=== PATIENT | male | born 1940 | race Caucasian/White ===

== ENCOUNTER 2022-09-09 13:00 | Emergency (ER) | payer MEDICARE, BC ==
[2022-09-09 14:26] LABS: BASOPHILS ABSOLUTE AUTO 0.03 K/uL (0.00-0.10); BASOPHILS PERCENT AUTO 0.4 % (0.1-1.3); EOSINOPHILS ABSOLUTE AUTO 0.03 K/uL (0.00-0.40); EOSINOPHILS PERCENT AUTO 0.4 % (0.0-5.4); HEMATOCRIT 39.3 % (38.4-49.7); HEMOGLOBIN 13.2 g/dL (12.9-16.9); IMMATURE GRAN ABSOLUTE AUTO 0.13 K/uL (0.00-0.23); IMMATURE GRAN PERCENT AUTO 1.8 % (0.0-0.7); LYMPHOCYTES ABSOLUTE AUTO 0.63 K/uL (0.8-3.3); LYMPHOCYTES PERCENT AUTO 8.9 % (11.4-47.7); MEAN CORPUSCULAR HEMOGLOBIN 31.5 pg (31.6-35.5); MEAN CORPUSCULAR HGB CONC 33.6 g/dL (31.6-35.5); MEAN CORPUSCULAR VOLUME 93.8 fL (81.4-99.0); MONOCYTES ABSOLUTE AUTO 0.71 K/uL (0.20-0.90); NEUTROPHILS ABSOLUTE AUTO 5.58 K/uL (1.0-7.6); NEUTROPHILS PERCENT AUTO 78.5 % (40.0-78.1); PLATELET COUNT,PLT 156 K/uL (130-375); RED BLOOD CELL COUNT 4.19 M/uL (4.14-5.76); WHITE BLOOD CELL COUNT,WBC 7.1 K/uL (3.2-11.0)
[2022-09-09 14:49] LABS: A/G RATIO 0.6 (1.2-2.2); ALANINE AMINOTRANSFERASE,ALT 36 U/L (12-78); ALBUMIN 2.4 g/dL (3.4-5.0); ALKALINE PHOSPHATASE 68 U/L (46-116); ASPARTATE AMNIOTRANSFERASE,AST 28 U/L (15-37); BILIRUBIN TOTAL 0.9 mg/dL (0.2-1.0); BLOOD UREA NITROGEN,BUN 21 mg/dL (7-18); CALCIUM 8.1 mg/dL (8.5-10.1); CARBON DIOXIDE,CO2 23 mmol/L (21-32); CHLORIDE,CL 104 mmol/L (100-108); CREATININE 1.2 mg/dL (0.8-1.3); EST CRCL DRUG DOSING (CG) 44.31 mL/min; ESTIMATED GFR 61 mL/min (>60); GLUCOSE RANDOM 117 mg/dL (74-106); POTASSIUM,K 3.7 mmol/L (3.6-5.2); PROTEIN TOTAL,TP 6.2 g/dL (6.4-8.2); SODIUM,NA 137 mmol/L (140-148)
[2022-09-09 14:50] LABS: ANION GAP 13.7 mmol/L (5.0-14.0)
[2022-09-09 14:56] LABS: TSH ULTRASENSITIVE 3.699 uIU/mL (0.358-3.740)
[2022-09-09 15:48] LABS: BILIRUBIN,URINE SMALL (NEGATIVE); COLOR,URINE YELLOW (YELLOW); GLUCOSE,URINE NEGATIVE (NEGATIVE); KETONES,URINE TRACE mg/dL (NEGATIVE); LEUKOCYTE ESTERASE,URINE SMALL (NEGATIVE); NITRITE,URINE NEGATIVE (NEGATIVE); OCCULT BLOOD,URINE TRACE-INTACT (NEGATIVE); PROTEIN,URINE 100 mg/dL (NEGATIVE)
[2022-09-09 16:01] LABS: APPEARANCE,URINE SLIGHTLY CLOUDY (CLEAR); WBC,URINE 50-75 (0-5)
[2022-09-09 16:02] LABS: AMORPHOUS SEDIMENT,URINE FEW; BACTERIA,URINE MODERATE; EPITHELIAL CELLS,URINE FEW; MUCUS,URINE FEW
[2022-09-09] MEDS ORDERED: predniSONE 20 MG Tab PO ONE (16:11)
== END 2022-09-09 16:28 | disposition home or self-care (01) ==
LOC: JP.ED 13:00
DX: J44.9 Chronic obstructive pulmonary disease, unspecified (principal); I25.10 Atherosclerotic heart disease of native coronary artery without angina pectoris; E88.09 Other disorders of plasma-protein metabolism, not elsewhere classified; M35.3 Polymyalgia rheumatica; E78.00 Pure hypercholesterolemia, unspecified; I10 Essential (primary) hypertension; M19.90 Unspecified osteoarthritis, unspecified site; E11.9 Type 2 diabetes mellitus without complications; E66.9 Obesity, unspecified; F17.210 Nicotine dependence, cigarettes, uncomplicated; Z68.32 Body mass index [BMI] 32.0-32.9, adult; Z79.82 Long term (current) use of aspirin; Z79.899 Other long term (current) drug therapy; Z79.84 Long term (current) use of oral hypoglycemic drugs
CPT/HCPCS: 36415; 71046; 80053; 81001; 83880; 84443; 85025; 85651; 93005; 99285; J7512

== ENCOUNTER 2024-01-27 03:27 | Inpatient (IN) | payer MEDICARE, BC ==
[2024-01-27 03:36] LABS: BASOPHILS ABSOLUTE AUTO 0.04 K/uL (0.00-0.10); BASOPHILS PERCENT AUTO 0.5 % (0.1-1.3); EOSINOPHILS PERCENT AUTO 2.6 % (0.0-5.4); HEMATOCRIT 43.5 % (38.4-49.7); HEMOGLOBIN 14.5 g/dL (12.9-16.9); IMMATURE GRAN ABSOLUTE AUTO 0.08 K/uL (0.00-0.23); LYMPHOCYTES ABSOLUTE AUTO 0.48 K/uL (0.8-3.3); LYMPHOCYTES PERCENT AUTO 6.1 % (11.4-47.7); MEAN CORPUSCULAR HEMOGLOBIN 30.3 pg (31.6-35.5); MEAN CORPUSCULAR HGB CONC 33.3 g/dL (31.6-35.5); MEAN CORPUSCULAR VOLUME 90.8 fL (81.4-99.0); MONOCYTES ABSOLUTE AUTO 0.41 K/uL (0.20-0.90); MONOCYTES PERCENT AUTO 5.2 % (3.3-12.6); NEUTROPHILS ABSOLUTE AUTO 6.62 K/uL (1.0-7.6); NEUTROPHILS PERCENT AUTO 84.6 % (40.0-78.1); PLATELET COUNT,PLT 161 K/uL (130-375); RED BLOOD CELL COUNT 4.79 M/uL (4.14-5.76); WHITE BLOOD CELL COUNT,WBC 7.8 K/uL (3.2-11.0)
[2024-01-27] MEDS: Albuterol/Ipratropium 3.0-0.5 MG/3 ML Neb Soln NEB ONE (03:40)
[2024-01-27 03:53] LABS: BLOOD UREA NITROGEN,BUN 28 mg/dL (7-18); C-REACTIVE PROTEIN 9.94 mg/dL (<0.50); CALCIUM 9.2 mg/dL (8.5-10.1); CARBON DIOXIDE,CO2 20 mmol/L (21-32); CHLORIDE,CL 101 mmol/L (100-108); CREATININE 2.1 mg/dL (0.8-1.3); ESTIMATED GFR 31 mL/min (>60); GLUCOSE RANDOM 156 mg/dL (74-106); POTASSIUM,K 4.9 mmol/L (3.6-5.2); SODIUM,NA 135 mmol/L (140-148); TROPONIN I HIGH SENSITIVITY 37.5 pg/mL (<=60.3)
[2024-01-27 03:56] LABS: ANION GAP 18.9 mmol/L (5.0-14.0)
[2024-01-27] MEDS: Acetaminophen 500 MG Tab PO ONE (04:12)
[2024-01-27 04:15] LABS: CORONAVIRUS COVID-19 NAA NEGATIVE (NEGATIVE); INFLUENZA A NAA NEGATIVE (NEGATIVE); INFLUENZA B NAA NEGATIVE (NEGATIVE); RESPIRATORY SYNCYTIAL VIR NAA NEGATIVE (NEGATIVE)
[2024-01-27 04:41] LABS: BASE EXCESS VENOUS -2.5 mm/L; BICARBONATE,VENOUS 18.8 mmol/L; CARBOXYHEMOGLOBIN 1.6 % (0.0-1.6); METHEMOGLOBIN 1.2 %; O2 SATURATION VENOUS 74.6; OXYHEMOGLOBIN 72.5 %; PCO2 VENOUS 24.9 mm/Hg; TOTAL HEMOGLOBIN 14.8 g/dL (13.5-18.0)
[2024-01-27 04:44] LABS: PO2 VENOUS 37.7 mm/Hg
[2024-01-27] MEDS: LORazepam 2 MG/ML SDV IVPUSH ONE (04:44)
[2024-01-27] MEDS: Sodium Chloride 0.9% 100 ML IV STA (05:23)
[2024-01-27] MEDS: Iopamidol 755 Mg/ML 100 ML Bottle IV STA (05:23)
[2024-01-27] MEDS: Sodium Chloride 0.9% 500 ML IV ONE ×3 (05:32→21:32)
[2024-01-27] MEDS: cefTRIAXone 2 GM in Sodium Chloride 0.9% 50 ML IV SCH (05:36)
[2024-01-27] MEDS: Doxycycline 100 MG in Sodium Chloride 0.9% 100 ML IV SCH (06:12)
[2024-01-27] MEDS ORDERED: Nitroglycerin 0.4 MG Tab.SL SL PRN (07:16)
[2024-01-27] MEDS ORDERED: Acetaminophen 325 MG Tab PO PRN (07:16)
[2024-01-27] MEDS ORDERED: Morphine 2 MG/ML SYRINGE IVPUSH PRN (07:16)
[2024-01-27] MEDS: Insulin Lispro 100 Unit/ML 3 ML KwikPen SUBCUT SCH (07:31)
[2024-01-27] MEDS: Albuterol/Ipratropium 3.0-0.5 MG/3 ML Neb Soln NEB SCH (08:02)
[2024-01-27] MEDS: Isosorbide Mononitrate 30 MG Tab.ER PO SCH (08:03)
[2024-01-27] MEDS: Metoprolol Tartrate 25 MG Tab PO SCH (08:04)
[2024-01-27] MEDS: Pantoprazole 40 MG Vial IVPUSH SCH (08:04)
[2024-01-27] MEDS: Docusate Sodium 100 MG Cap PO SCH (08:04)
[2024-01-27] MEDS: methylPREDNISolone Sodium Succinate 125 MG/2 ML SDV IVPUSH ONE (08:04)
[2024-01-27] MEDS: atorvaSTATin 20 MG Tab PO SCH (08:05)
[2024-01-27] MEDS: Lisinopril 10 MG Tab PO SCH (08:05)
[2024-01-27] MEDS: Enoxaparin 30 MG/0.3 ML Syringe SUBCUT SCH (08:05)
[2024-01-27] MEDS: Sodium Chloride 0.9% 1,000 ML IV SCH (08:06)
[2024-01-27 11:15] LABS: APPEARANCE,URINE SLIGHTLY CLOUDY (CLEAR); BILIRUBIN,URINE NEGATIVE (NEGATIVE); COLOR,URINE YELLOW (YELLOW); GLUCOSE,URINE NEGATIVE (NEGATIVE); KETONES,URINE TRACE mg/dL (NEGATIVE); LEUKOCYTE ESTERASE,URINE SMALL (NEGATIVE); NITRITE,URINE NEGATIVE (NEGATIVE); OCCULT BLOOD,URINE LARGE (NEGATIVE); PH,URINE 5.5 (5.0-8.0); PROTEIN,URINE 100 mg/dL (NEGATIVE)
[2024-01-27 11:33] LABS: AMORPHOUS SEDIMENT,URINE FEW; BACTERIA,URINE FEW; EPITHELIAL CELLS,URINE FEW; MUCUS,URINE RARE
[2024-01-27] MEDS: methylPREDNISolone Sodium Succinate 40 MG/1 ML SDV IVPUSH SCH (11:47)
[2024-01-27] MEDS: Latanoprost 0.005% Ophth Soln 2.5 ML Bottle EYEBOTH SCH (20:59)
[2024-01-28] MEDS: Aluminum Hydroxide/Magnesium Hydroxide/Simethicone Susp 30 ML Cup PO PRN (03:48)
[2024-01-28 05:46] LABS: CALCIUM 8.5 mg/dL (8.5-10.1); CREATININE 1.9 mg/dL (0.8-1.3); EST CRCL DRUG DOSING (CG) 29.5 mL/min; MAGNESIUM 1.8 mg/dL (1.8-2.4); POTASSIUM,K 4.6 mmol/L (3.6-5.2)
[2024-01-28 05:49] LABS: ANION GAP 16.6 mmol/L (5.0-14.0)
[2024-01-28] MEDS: predniSONE 20 MG Tab PO SCH (08:00)
[2024-01-29] MEDS: Albuterol 0.083% 2.5 MG/3 ML Neb Soln NEB PRN (04:34)
[2024-01-29 05:46] LABS: ANION GAP 10.4 mmol/L (5.0-14.0); CALCIUM 8.4 mg/dL (8.5-10.1); CREATININE 1.3 mg/dL (0.8-1.3); EST CRCL DRUG DOSING (CG) 43.12 mL/min; POTASSIUM,K 4.7 mmol/L (3.6-5.2)
[2024-01-29] MEDS: Pantoprazole 40 MG Tab.CR PO SCH (08:37)
== END 2024-01-29 10:54 | disposition home or self-care (01) | DRG 189 ==
LOC: JP.ED 03:27 → JP.MS 05:40
PROVIDERS: ADMIT Hospitalist; ATTEND Hospitalist
PROC: 4A033R1 Measurement of Arterial Saturation, Peripheral, Percutaneous Approach (ICD-10-PCS; principal; 2024-01-27)
DX: J44.9 Chronic obstructive pulmonary disease, unspecified (principal); I10 Essential (primary) hypertension; J96.01 Acute respiratory failure with hypoxia; E11.9 Type 2 diabetes mellitus without complications; J44.1 Chronic obstructive pulmonary disease with (acute) exacerbation; J44.0 Chronic obstructive pulmonary disease with (acute) lower respiratory infection; N17.9 Acute kidney failure, unspecified; J20.9 Acute bronchitis, unspecified; E78.00 Pure hypercholesterolemia, unspecified; Z68.32 Body mass index [BMI] 32.0-32.9, adult; M19.90 Unspecified osteoarthritis, unspecified site; F32.A Depression, unspecified; E66.9 Obesity, unspecified; I25.10 Atherosclerotic heart disease of native coronary artery without angina pectoris; M35.3 Polymyalgia rheumatica; M06.9 Rheumatoid arthritis, unspecified; E86.0 Dehydration; N18.30 Chronic kidney disease, stage 3 unspecified; I12.9 Hypertensive chronic kidney disease with stage 1 through stage 4 chronic kidney disease, or unspecified chronic kidney disease; E11.22 Type 2 diabetes mellitus with diabetic chronic kidney disease; Z79.51 Long term (current) use of inhaled steroids; Z79.82 Long term (current) use of aspirin; Z79.899 Other long term (current) drug therapy; Z79.52 Long term (current) use of systemic steroids; Z79.84 Long term (current) use of oral hypoglycemic drugs; Z95.5 Presence of coronary angioplasty implant and graft; Z68.30 Body mass index [BMI] 30.0-30.9, adult
CPT/HCPCS: 0241U; 36415; 71045; 71045-26; 71275; 80048; 81001; 82150; 82803; 82947; 83605; 83690; 83735; 83880; 84484; 85025; 85379; 86140; 87040; 93005; 93010; 94640; 96374; 96375; 99222; 99232; 99238; 99285; 99285-25; A9270-GY; J0696; J1650; J1815; J2060; J2470; J2919; J3490; J7030; J7040; J7512; J7620; Q9967